=== PATIENT | female | born 1965 | race Caucasian/White ===

== ENCOUNTER 2023-06-02 15:00 | Outpatient (RCR) | payer OTHER ==
[2004-07-25 01:23] VITALS: PULSE 81; TEMP 97
== END 2023-06-03 | disposition home or self-care (01) ==
LOC: WSPT
DX: M54.12 Radiculopathy, cervical region (principal); M54.6 Pain in thoracic spine; V89.2XXD Person injured in unspecified motor-vehicle accident, traffic, subsequent encounter